=== PATIENT | male | born 1995 | race Caucasian/White ===

== ENCOUNTER 2020-02-29 14:35 | Emergency (ER) | payer OTHER, SELFPAY ==
--- NOTE | 2020-02-29 16:37 | ER ---
Nurse's Notes [facility] Name: Med Johnson Age: 24 yrs Sex: Male : 1995 Arrival Date: 02/29/2020 Time: 14:38 Bed 30 Private MD: Diagnosis: Acute upper respiratory infection, unspecified Presentation: 02/28 14:58 Chief complaint: Patient states: runny nose, cough and sneezing x 2 days. PT reports ss that his job wants him to get tested for COVID. Denies fever, SOB. Coronavirus screen: Client presents with at least one sign or symptom that may indicate coronavirus-19. At this time, the client does not indicate any symptoms associated with coronavirus-19. Ebola Screen: Patient denies exposure to infectious person. Patient denies travel to an Ebola-affected area in the 21 days before illness onset. Initial Sepsis Screen: Does the patient meet any 2 criteria? No. Patient's initial sepsis screen is negative. Does the patient have a suspected source of infection? No. Patient's initial sepsis screen is negative. Risk Assessment: Do you want to hurt yourself or someone else? Patient reports no desire to harm self or others. Onset of symptoms was February 27, 2020. 14:58 Method Of Arrival: Ambulatory ss 14:58 Acuity: KIKI 4 ss Historical: - Allergies: 15:00 No Known Allergies; ss - Home Meds: 15:00 None [Active]; ss - PMHx: 15:00 None; ss - PSHx: 15:00 None; ss - Immunization history:: Adult Immunizations up to date. - Social history:: Smoking status: Patient reports the use of cigarette tobacco products, smokes one-half pack cigarettes per day. Screenin:58 Abuse screen: Denies threats or abuse. Denies injuries from another. Nutritional ss screening: No deficits noted. Tuberculosis screening: Never had TB. Fall Risk None identified. Assessment: 14:58 General: Appears in no apparent distress. comfortable, Behavior is calm, cooperative. ss General: Denies fever. Pain: Denies pain. Neuro: Level of Consciousness is awake, alert, obeys commands, Oriented to person, place, time, situation. Cardiovascular: Capillary refill < 3 seconds is brisk in bilateral fingers. Respiratory: Reports cough that is Respiratory effort is even, unlabored, Respiratory pattern is regular, symmetrical. GI: Patient currently denies diarrhea, nausea, vomiting. EENT: Reports nasal congestion nasal discharge that is watery. Derm: Skin is intact, is healthy with good turgor, Skin is pink, warm \T\ dry. normal. Musculoskeletal: Circulation, motion, and sensation intact. Range of motion: intact in all extremities, Swelling absent. 16:23 Reassessment: Patient appears in no apparent distress at this time. Patient and/or iw family updated on plan of care and expected duration. Pain level reassessed. Patient is alert, oriented x 3, equal unlabored respirations, skin warm/dry/pink. Vital Signs: 14:58 BP 130 / 84; Pulse 54; Resp 16; Temp 98.2(TE); Pulse Ox 99% on R/A; Weight 70.31 kg; ss Height 5 ft. 10 in. (177.80 cm); Pain 0/10; 14:58 Body Mass Index 22.24 (70.31 kg, 177.80 cm) ED Course: 14:38 Patient arrived in ED. as 14:42 Mandy Torres FNP-C [facility]. kb 14:42 Reed Babin MD is Attending Physician. kb 14:58 Patient has correct armband on for positive identification. Bed in low position. Call ss light in reach. 14:59 Triage completed. ss 15:00 Arm band placed on right wrist. ss 16:23 Adenike Dougherty, RN is Primary Nurse. iw 16:23 No provider procedures requiring assistance completed. Patient did not have IV access iw during this emergency room visit. Administered Medications: No medications were administered Outcome: 16:36 Discharge ordered by . kb 17:01 Patient left the ED. iw Addendum: 03/03/2020 12:05 Addendum: COVID-19 Result: Negative result given to RN to notify pt. Notified pt of i w negative COVID 19 swab results. Pt advised that even with a negative test result they should remain in isolation until symptom free for 3 days without medication. Pt also advised to return to the ED for worsening symptoms. Signatures: Mandy Torres FNP-C FNP-Chantal Lawrence as Adenike Dougherty, RN AMILCAR Mer Faria RN RN
--- NOTE | 2020-02-29 16:37 | EDPHYS ---
Physician Documentation [facility] Name: Med Johnson Age: 24 yrs Sex: Male : 1995 Arrival Date: 02/29/2020 Time: 14:38 Bed 30 Private MD: ED Physician Reed Babin HPI: 02/28 16:35 This 24 yrs old Male presents to ER via Ambulatory with complaints of r/o kb covid. 16:35 The patient or guardian reports cough, that is intermittent, described as mild, with no kb sputum. Onset: The symptoms/episode began/occurred 2 day(s) ago. Severity of symptoms: At their worst the symptoms were mild, in the emergency department the symptoms are unchanged. Modifying factors: The symptoms are alleviated by nothing, the symptoms are aggravated by nothing. Associated signs and symptoms: Pertinent positives: rhinorrhea, Pertinent negatives: chest pain, diarrhea, ear ache, fever, nausea, sore throat, vomiting. The patient has not experienced similar symptoms in the past. The patient has not recently seen a physician. Pt reports coughing, sneezing and runny nose for 2 days. Work sent him to get tested for COVID. Historical: - Allergies: 15:00 No Known Allergies; ss - Home Meds: 15:00 None [Active]; ss - PMHx: 15:00 None; ss - PSHx: 15:00 None; ss - Immunization history:: Adult Immunizations up to date. - Social history:: Smoking status: Patient reports the use of cigarette tobacco products, smokes one-half pack cigarettes per day. ROS: 16:35 Constitutional: Negative for fever, chills, and weight loss, Cardiovascular: Negative kb for chest pain, palpitations, and edema, Abdomen/GI: Negative for abdominal pain, nausea, vomiting, diarrhea, and constipation, Back: Negative for injury and pain, MS/Extremity: Negative for injury and deformity, Skin: Negative for injury, rash, and discoloration, Neuro: Negative for headache, weakness, numbness, tingling, and seizure. 16:35 ENT: Positive for rhinorrhea, sinus congestion. 16:35 Respiratory: Positive for cough. Exam: 16:34 Constitutional: This is a well developed, well nourished patient who is awake, alert, kb and in no acute distress. ENT: Nares patent. No nasal discharge, no septal abnormalities noted. Tympanic membranes are normal and external auditory canals are clear. Oropharynx with no redness, swelling, or masses, exudates, or evidence of obstruction, uvula midline. Mucous membranes moist. Chest/axilla: Normal chest wall appearance and motion. Nontender with no deformity. No lesions are appreciated. Cardiovascular: Regular rate and rhythm with a normal S1 and S2. No gallops, murmurs, or rubs. Normal PMI, no JVD. No pulse deficits. Respiratory: Lungs have equal breath sounds bilaterally, clear to auscultation and percussion. No rales, rhonchi or wheezes noted. No increased work of breathing, no retractions or nasal flaring. Abdomen/GI: Soft, non-tender, with normal bowel sounds. No distension or tympany. No guarding or rebound. No evidence of tenderness throughout. Back: No spinal tenderness. No costovertebral tenderness. Full range of motion. Skin: Warm, dry with normal turgor. Normal color with no rashes, no lesions, and no evidence of cellulitis. MS/ Extremity: Pulses equal, no cyanosis. Neurovascular intact. Full, normal range of motion. Neuro: Awake and alert, GCS 15, oriented to person, place, time, and situation. Cranial nerves II-XII grossly intact. Motor strength 5/5 in all extremities. Sensory grossly intact. Cerebellar exam normal. Normal gait. Vital Signs: 14:58 BP 130 / 84; Pulse 54; Resp 16; Temp 98.2(TE); Pulse Ox 99% on R/A; Weight 70.31 kg; ss Height 5 ft. 10 in. (177.80 cm); Pain 0/10; 14:58 Body Mass Index 22.24 (70.31 kg, 177.80 cm) ss MDM: 15:00 Patient medically screened. kb 16:33 Data reviewed: vital signs, nurses notes. Data interpreted: Pulse oximetry: on room air kb is 99 %. Interpretation: normal. Counseling: I had a detailed discussion with the patient and/or guardian regarding: the historical points, exam findings, and any diagnostic results supporting the discharge/admit diagnosis, lab results, the need for outpatient follow up, a family practitioner, to return to the emergency department if symptoms worsen or persist or if there are any questions or concerns that arise at home. 02/28 15:01 Order name: Flu; Complete Time: 16:31 kb 02/28 16:31 Order name: COVID-19 kb Administered Medications: No medications were administered Disposition: 03/01 08:25 Co-signature as Attending Physician, Reed Babin MD I agree with the assessment and [facility] plan of care. Disposition: 02/29/20 16:36 Discharged to Home. Impression: Acute upper respiratory infection, unspecified. - Condition is Stable. - Discharge Instructions: Viral Respiratory Infection, [id number], COVID-19. - Medication Reconciliation Form, Thank You Letter, Antibiotic Education, Prescription Opioid Use, Work release form form. - Follow up: Emergency Department; When: As needed; Reason: Worsening of condition. Follow up: Private Physician; When: 2 - 3 days; Reason: Recheck today's complaints, Continuance of care, Re-evaluation by your physician. Signatures: Dispatcher [employer] EDMandy Villareal, DARI-C DARI-Reed Salinas MD MD cha Williams, Irene, Mer Payton RN, RN RN ss Corrections: (The following items were deleted from the chart) 02/28 17:01 16:36 02/29/2020 16:36 Discharged to Home. Impression: Acute upper respiratory iw infection, unspecified. Condition is Stable. Forms are Medication Reconciliation Form, Thank You Letter, Antibiotic Education, Prescription Opioid Use. Follow up: Emergency Department; When: As needed; Reason: Worsening of condition. Follow up: Private Physician; When: 2 - 3 days; Reason: Recheck today's complaints, Continuance of care, Re-evaluation by your physician. kb
[2020-03-05 18:36] VITALS: BP 130/84; TEMP 98.2; O2SAT 99
== END 2020-02-29 17:01 | disposition home or self-care (01) ==
LOC: ER 14:35
DX: J06.9 Acute upper respiratory infection, unspecified (principal); Z20.828 Contact with and (suspected) exposure to other viral communicable diseases; F17.210 Nicotine dependence, cigarettes, uncomplicated
CPT/HCPCS: 87804; 99281; U0002